=== PATIENT | female | born 1975 | race Caucasian/White ===

== ENCOUNTER → 2023-06-14 | Outpatient (REF) | payer OTHER | LOC: M SFHCWAGY 17:24 | PROVIDERS: ATTEND Obstetrics & Gynecology | DX: N93.9 Abnormal uterine and vaginal bleeding, unspecified (principal) ==

== ENCOUNTER 2023-07-05 08:09 | Day surgery (SDC) | payer OTHER ==
[~2023-07-05] VITALS: Ht 172.7 cm; Wt 122.0 kg
[2023-07-05] VITALS (7 sets, daily range): BP systolic 126–137; BP diastolic 75–87; TEMP 97.3–97.9; O2SAT 96–100
[2023-07-05] MEDS ORDERED: ONDANSETRON 4MG 2ML VIAL As Ordered ONE (08:15)
[2023-07-05] MEDS ORDERED: LIDOCAINE 2% 100MG/5ML SDV (FOR ANES.) As Ordered ONE (08:15)
[2023-07-05] MEDS ORDERED: propofoL 200 MG/20 ML VIAL As Ordered ONE (08:15)
[2023-07-05] MEDS ORDERED: SUGAMMADEX SODIUM 500 MG/5 ML VIAL (BRIDION) As Ordered ONE (08:15)
[2023-07-05] MEDS ORDERED: ROCURONIUM BROMIDE 50MG/5ML VIAL As Ordered ONE (08:15)
[2023-07-05] MEDS ORDERED: MIDAZOLAM INJ 2MG/2ML VIAL As Ordered ONE (08:34)
[2023-07-05] MEDS ORDERED: fentaNYL 250 MCG/5 ML INJECTION As Ordered ONE (08:34)
[2023-07-05 08:51] LABS: HEMATOCRIT 41.2 % (36.0-47.0); MEAN CORPUSCULAR HEMOGLOBIN 30.6 pg (27.0-33.0); PLATELET COUNT, AUTOMATED 177 10^3/uL (150-450); RED BLOOD COUNT 4.58 10^6/uL (4.00-5.40); WHITE BLOOD COUNT 5.9 10^3/uL (4.0-10.0)
[2023-07-05] MEDS ORDERED: IBUP200T46 PO (09:30)
[2023-07-05] MEDS: LR 1,000 ML IV SCH ×2 (09:54→12:10)
[2023-07-05] MEDS: ceFAZolin SOD 1 GM in D5W MINI-BAG PLUS 50 ML IV ONE (10:24)
[2023-07-05] MEDS: ceFAZolin SOD 2 GM in IV 1 EA IV ONE (10:24)
[2023-07-05] MEDS ORDERED: ACETAMINOPHEN 1000MG 100ML IV BAG As Ordered ONE (10:30)
[2023-07-05] MEDS ORDERED: GLYCOPYRROLATE INJ 0.2 MG/ML 2 ML VIAL As Ordered ONE (11:02)
[2023-07-05] MEDS ORDERED: HYDROmorphone HCL 2MG/ML 1ML VIAL As Ordered ONE (11:16)
[2023-07-05] MEDS: METHYLENE BLUE 0.5% (5MG/ML) 10 ML AMP (PROVAYBLUE) As Ordered ONE (11:29)
[2023-07-05] MEDS ORDERED: MORPHINE 4 MG/ML 1ML VIAL IV PRN (12:10)
[2023-07-05] MEDS ORDERED: ONDANSETRON 4MG 2ML VIAL IV PRN (12:10)
[2023-07-05] MEDS ORDERED: PERCOCET 5MG/325MG TAB PO PRN (12:10)
[2023-07-05] MEDS ORDERED: fentaNYL 100 MCG/2 ML INJECTION IV PRN (12:10)
[2023-07-05] MEDS ORDERED: PROMETHAZINE 25MG/ML 1ML VIAL IV PRN (12:10)
[2023-07-05] MEDS ORDERED: COLA100C5 PO (12:16)
[2023-07-05] MEDS ORDERED: PERCOCET PO (12:16)
[2023-07-05] MEDS ORDERED: IBUP80TA PO (12:16)
[2023-07-05] MEDS: oxyCODONE 5MG TAB PO PRN (12:39)
[2023-07-05] MEDS: MORPHINE 2 MG/ML 1ML VIAL IV PRN (12:41)
[2023-07-05] MEDS ORDERED: HOME MED LIST COMPLETE! XX SCH (14:45)
[2023-07-05] MEDS: KETOROLAC 30 MG/ML 1ML VIAL IV SCH (17:55)
[2023-07-05] MEDS: DOCUSATE SODIUM 100MG CAPSULE PO SCH (20:22)
[2023-07-05] MEDS: PERCOCET 5MG/325MG TAB PO PRN (20:23)
[2023-07-06] MEDS ORDERED: IBUPROFEN 800 MG TAB PO SCH (14:00)
== END 2023-07-05 21:18 | disposition home or self-care (01) ==
LOC: M SDC 08:09 → M RR INP 08:10 → UNDOADMOB 08:10 → M RR INP 13:30 → M PED 13:30 → UNDODISOB 21:18 → M SDC 21:18
PROVIDERS: ATTEND Obstetrics & Gynecology
DX: N72 Inflammatory disease of cervix uteri (principal); N93.9 Abnormal uterine and vaginal bleeding, unspecified; R10.2 Pelvic and perineal pain; Z80.3 Family history of malignant neoplasm of breast; F17.290 Nicotine dependence, other tobacco product, uncomplicated; Z88.1 Allergy status to other antibiotic agents
CPT/HCPCS: 36415; 58571; 81025; 85027; 86850; 86900; 86901; 88307; J0131; J0665; J0690; J1100; J1170; J1885; J2250; J2405; J3010; Q9968; S2900

== ENCOUNTER 2024-01-11 13:02 | Emergency (ER) | payer OTHER ==
[~2024-01-11] VITALS: Ht 172.7 cm; Wt 121.4 kg
[~2024-01-11 13:02] MED LIST: COLA100C5 PO; IBUP200T46 PO; IBUP80TA PO; PERCOCET PO
[2024-01-11] MEDS ORDERED: FLON1SPR NARES (14:00)
[2024-01-11 14:26] VITALS: BP 153/78; TEMP 97.8; O2SAT 98
== END 2024-01-11 14:27 | disposition home or self-care (01) ==
LOC: M ED 13:02
DX: H69.82 Other specified disorders of Eustachian tube, left ear (principal); Q05.9 Spina bifida, unspecified; Z79.899 Other long term (current) drug therapy; Z88.1 Allergy status to other antibiotic agents